=== PATIENT | female | born 1940 | race Two or more races ===

== ENCOUNTER 2019-09-11 14:59 | Inpatient (IN) | payer OTHER ==
[2019-09-23] MEDS ORDERED: PRILOSEC OTC20 MG PO (13:10)
[2019-09-23] MEDS ORDERED: INTESTINEX680 M1 PO (13:10)
[2019-09-23] MEDS ORDERED: ACETAMINOPHEN500 M2 PO (13:10)
== END 2019-09-23 14:47 | disposition home or self-care (01) | DRG 330 ==
LOC: EDBD 09-16 09:00 → O/R 09-19 08:30 → SURH 09-19 08:30 → SURG 09-19 09:00 → EDBD 09-19 09:00 → SURG 09-19 12:00 → SURH 09-19 15:49
PROVIDERS: Urology; ADMIT Surgery
PROC: 0UT64ZZ Resection of Left Fallopian Tube, Percutaneous Endoscopic Approach (ICD-10-PCS; 2019-09-19)
PROC: 0UT14ZZ Resection of Left Ovary, Percutaneous Endoscopic Approach (ICD-10-PCS; 2019-09-19)
PROC: 0T788DZ Dilation of Bilateral Ureters with Intraluminal Device, Via Natural or Artificial Opening Endoscopic (ICD-10-PCS; 2019-09-19)
PROC: 0TTB0ZZ Resection of Bladder, Open Approach (ICD-10-PCS; 2019-09-19)
PROC: 4A033R1 Measurement of Arterial Saturation, Peripheral, Percutaneous Approach (ICD-10-PCS; 2019-09-19)
PROC: 0DTN4ZZ Resection of Sigmoid Colon, Percutaneous Endoscopic Approach (ICD-10-PCS; principal; 2019-09-19 12:00)
PROC: 07TB4ZZ Resection of Mesenteric Lymphatic, Percutaneous Endoscopic Approach (ICD-10-PCS; 2019-09-19 12:00)
DX: C18.7 Malignant neoplasm of sigmoid colon (principal); C79.11 Secondary malignant neoplasm of bladder; C79.62 Secondary malignant neoplasm of left ovary; N83.8 Other noninflammatory disorders of ovary, fallopian tube and broad ligament; N73.6 Female pelvic peritoneal adhesions (postinfective); N28.89 Other specified disorders of kidney and ureter; R59.0 Localized enlarged lymph nodes; G47.33 Obstructive sleep apnea (adult) (pediatric); I11.9 Hypertensive heart disease without heart failure; R33.8 Other retention of urine; E11.9 Type 2 diabetes mellitus without complications; Z79.4 Long term (current) use of insulin

== ENCOUNTER → 2019-09-17 | Outpatient (CLI) | payer OTHER ==
[~2019-09-17] MED LIST: ACETAMINOPHEN500 M2 PO; INTESTINEX680 M1 PO; PRILOSEC OTC20 MG PO
== END | disposition home or self-care (01) ==
LOC: TOM 09:30
DX: C18.7 Malignant neoplasm of sigmoid colon (principal); R59.0 Localized enlarged lymph nodes; K59.09 Other constipation; K62.5 Hemorrhage of anus and rectum; K56.600 Partial intestinal obstruction, unspecified as to cause

== ENCOUNTER 2020-02-15 11:19 | Emergency (ER) | payer OTHER ==
[~2020-02-15] VITALS: Ht 147.3 cm; Wt 61.7 kg
== END 2020-02-15 12:55 | disposition home or self-care (01) ==
LOC: ER 11:19
DX: K04.7 Periapical abscess without sinus (principal)

== ENCOUNTER 2021-09-05 13:46 | Emergency (ER) | payer OTHER ==
[~2021-09-05] VITALS: Ht 144.8 cm; Wt 62.6 kg
[2021-09-05] MEDS ORDERED: KETO10TA2 PO (17:06)
== END 2021-09-05 17:22 | disposition home or self-care (01) ==
LOC: ER 13:46
DX: S32.2XXA Fracture of coccyx, initial encounter for closed fracture (principal); M54.59 Other low back pain; W01.198A Fall on same level from slipping, tripping and stumbling with subsequent striking against other object, initial encounter; Y93.89 Activity, other specified; Y92.092 Bedroom in other non-institutional residence as the place of occurrence of the external cause; Y99.8 Other external cause status

== ENCOUNTER 2021-09-22 18:03 | Inpatient (IN) | payer OTHER ==
[~2021-09-22] VITALS: Ht 152.4 cm; Wt 59.0 kg
[~2021-09-22 18:03] MED LIST changes: +KETO10TA2 PO
[2021-09-28] MEDS ORDERED: ACETAMINOPHEN500 M2 PO (08:18)
== END 2021-09-28 14:25 | disposition home or self-care (01) | DRG 395 ==
LOC: ER 18:03 → SEC-K 09-23 17:05 → SURG 09-23 17:05
PROVIDERS: ADMIT Surgery; ATTEND Surgery
DX: K43.6 Other and unspecified ventral hernia with obstruction, without gangrene (principal)

== ENCOUNTER 2021-10-06 14:14 | Emergency (ER) | payer OTHER ==
[~2021-10-06] VITALS: Ht 157.5 cm; Wt 68.0 kg
[2021-10-06] MEDS ORDERED: MIRALAX510 GM PO (22:28)
== END 2021-10-07 20:59 | disposition home or self-care (01) ==
LOC: ER 14:14
DX: K56.41 Fecal impaction (principal); E86.0 Dehydration; E87.8 Other disorders of electrolyte and fluid balance, not elsewhere classified; K80.80 Other cholelithiasis without obstruction; R10.84 Generalized abdominal pain; C18.7 Malignant neoplasm of sigmoid colon